=== PATIENT | female | born 1965 | race Caucasian/White ===

== ENCOUNTER 2020-01-03 09:21 | Day surgery (SDC) | payer BC ==
[~2020-01-03] VITALS: Ht 167.6 cm; Wt 44.8 kg
[~2020-01-03 09:21] MED LIST: B COMPLEX FORM0.4 MG PO; IBUP800 PO; MAGNESIUM OXID500 MG PO; PANT40 PO; SPIR50 PO
--- NOTE | 2020-01-03 10:12 | NUR ---
01/03/20 1012 Genevieve Bates D 1 IV MIOSS RFA BY RN WENT THROUGH VEIN 1 GOOD IN RFA BY RN PT TOW
== END 2020-01-03 11:48 | disposition home or self-care (01) ==
LOC: ORSCSDS 09:21
PROVIDERS: Student in an Organized Health Care Education/Training Program
PROC: 0DBK8ZX Excision of Ascending Colon, Via Natural or Artificial Opening Endoscopic, Diagnostic (ICD-10-PCS; principal; 2020-01-03 10:45)
PROC: 0DB68ZX Excision of Stomach, Via Natural or Artificial Opening Endoscopic, Diagnostic (ICD-10-PCS; principal; 2020-01-03 10:45)
DX: K74.60 Unspecified cirrhosis of liver (principal); D12.2 Benign neoplasm of ascending colon; K64.8 Other hemorrhoids; K76.6 Portal hypertension; K62.89 Other specified diseases of anus and rectum; K31.89 Other diseases of stomach and duodenum; K29.70 Gastritis, unspecified, without bleeding; F17.210 Nicotine dependence, cigarettes, uncomplicated; Z79.899 Other long term (current) drug therapy
CPT/HCPCS: 88305; 88342; J2250; J2704; J7120

== ENCOUNTER → 2023-11-15 | Outpatient (CLI) | payer BC ==
[~2023-11-15] MED LIST changes: +Aspir 8181 MG PO; +Chantix1 MG PO; +FERSU300 PO; +LOSA25 PO; +OXYC5 PO; +Senokotxtra17.2 MG PO
[2023-11-18 18:35] LABS: HPV HIGH RISK BY TMA Not Detected; HPV SOURCE Not Provided
== END ==
LOC: LAB SHORT 15:09 → LAB 15:09
PROVIDERS: Physician Assistant
DX: Z01.419 Encounter for gynecological examination (general) (routine) without abnormal findings (principal)
CPT/HCPCS: 87624; G0123